=== PATIENT | male | born 1965 | race Caucasian/White ===

== ENCOUNTER 2017-02-12 21:49 | Emergency (ER) | payer BC ==
[~2017-02-12] VITALS: Ht 167.6 cm; Wt 85.4 kg
[2017-02-12 21:54] VITALS: TEMP 98.6; Ht 167.6 cm; Wt 85.4 kg
--- OUTSIDE RECORDS SUMMARY | 2017-02-12 21:54 | XMS REPORT | Referral Summary ---
Author Organization Unknown Address Unknown Phone Unavailable Care Team Providers Care Recovery Unit Operator Name Role Phone Romero Urbano Primary Care Physician [phone] Encounter VC Date(s): 11/24/14 - 11/24/14 [facility] [address] [place] [address] Dr Banks [place]EN[place] [id number] Discharge Diagnosis: Hyperlipidemia Discharge Diagnosis: Hypertension/High BP Discharge Disposition: Home or Self Care Attending Physician: Moshe Urbano MD Admitting Physician: Moshe Urbano MD Vital Signs Most recent to 1 oldest [Reference Range]: Blood Pressure 136/84 mmHg [90-140/60-90 mmHg] (11/24/14 3:57 PM) Problem List Condition Effective Dates Status Health Status Informant Hyperlipidemia(Confi Active rmed) Hypertension/High Active BP(Confirmed) Allergies, Adverse Reactions, Alerts Substance Reaction Severity Status penicillin Active Medications Caduet 5 mg-20 mg oral tablet See Instructions, TAKE ONE TABLET BY MOUTH EVERY DAY, # 90 tabs, 3 Refill(s), Pharmacy: [facility] #[id number] Special Instructions: TAKE ONE TABLET BY MOUTH EVERY DAY Start Date: 11/24/14 Status: Ordered Multiple Vitamins oral tablet tabs, Oral, Daily, 0 Refill(s) Start Date: 11/21/14 Status: Ordered Results Chemistry Most recent to 1 oldest [Reference Range]: Sodium Lvl [135-144 142 mEq/L mEq/L] (11/24/14 4:18 PM) Potassium Lvl 5.0 mEq/L [3.5-5.2 mEq/L] (11/24/14 4:18 PM) Chloride [99-111 105 mEq/L mEq/L] (11/24/14 4:18 PM) CO2 [23-31 mEq/L] 25 mEq/L (11/24/14 4:18 PM) AGAP [3-20] 12 (11/24/14 4:18 PM) BUN [9-21 mg/dL] 16 mg/dL (11/24/14 4:18 PM) Glucose Lvl [70-99 81 mg/dL mg/dL] (11/24/14 4:18 PM) Creatinine Lvl 1.05 mg/dL [0.72-1.25 mg/dL] (11/24/14 4:18 PM) eGFR [>60 mL/min] >60 mL/min 1 (11/24/14 4:18 PM) Calcium Lvl 9.7 mg/dL [8.9-10.5 mg/dL] (11/24/14 4:18 PM) Albumin Lvl [3.5-5.0 4.4 gm/dL gm/dL] (11/24/14 4:18 PM) Total Protein 6.9 gm/dL [6.4-8.3 gm/dL] (11/24/14 4:18 PM) Globulin [1.8-4.0 2.5 gm/dL gm/dL] (11/24/14 4:18 PM) ALT [0-55 unit/L] 31 unit/L (11/24/14 4:18 PM) AST [5-34 unit/L] 34 unit/L (11/24/14 4:18 PM) Alk Phos [40-150 58 unit/L unit/L] (11/24/14 4:18 PM) Bili Total [0.2-1.2 1.1 mg/dL mg/dL] (11/24/14 4:18 PM) 1Result Comment: Multiply eGFR results by 1.21 for race. Immunizations No data available for this section Procedures No data available for this section Social History Social History Type Response Smoking Status Never smoker Assessment and Plan No data available for this section
--- OUTSIDE RECORDS SUMMARY | 2017-02-12 21:54 | XMS REPORT | Continuity of Care Document ---
Author Author [facility] Organization [facility] Address Unknown Phone Unavailable Allergies Active Description Code Type Severity Reaction Onset Reported/Identified Relationship to Patient Clinical Status Yes penicillin NKMA N/A N/A 01/19/2014 Medications Problems Procedures Results Encounters ACCT No. Visit Date/Time Discharge Status Pt. Type Provider Facility Loc./Unit Complaint [id number] 09/25/2016 11:18:00 2016 23:59:00 DIS Outpatient Dami Henry [facility] TCPA COUGH CONGESTION DOC [id number] 11/24/2014 12:37:00 2014 23:59:59 CLS Outpatient Moshe Urbano [facility] Med check
--- OUTSIDE RECORDS SUMMARY | 2017-02-12 21:54 | XMS REPORT | Referral Summary ---
Author Author [facility] Organization [facility] Address Unknown Phone Unavailable Care Team Providers Care [employer] Professor Name Role Phone Romero Urbano Primary Care Physician [phone] Encounter Date(s): 09/25/16 - 09/25/16 [facility] [address] [place] [address] YENY Man[place] [id number] Discharge Diagnosis: Hyperlipidemia Discharge Diagnosis: Acute URI Discharge Diagnosis: Hypertension/High BP Discharge Disposition: 01-Home or Self Care Attending Physician: Dami Henry MD Admitting Physician: Dami Henry MD Vital Signs Most recent to 1 oldest [Reference Range]: Peripheral Pulse 100 bpm Rate [60-100 bpm] (09/25/16 11:29 AM) Blood Pressure 130/90 mmHg [90-140/60-90 mmHg] (09/25/16 11:29 AM) SpO2 98 % (09/25/16 11:29 AM) Problem List Condition Effective Dates Status Health Status Informant Hyperlipidemia(Confi Active rmed) Hypertension/High Active BP(Confirmed) Obesity(Confirmed) Active patient Acute shoulder Active pain(Confirmed) Allergies, Adverse Reactions, Alerts Substance Reaction Severity Status penicillin Active Medications Multiple Vitamins oral tablet tabs, Oral, Daily, 0 Refill(s) Start Date: 11/21/14 Status: Ordered predniSONE 20 mg oral tablet 20 mg 1 tabs, Oral, Daily, X 5 days, # 5 tabs, 0 Refill(s), Pharmacy: [facility] #[id number], 1 tabs Oral Daily,x5 days Start Date: 09/25/16 Stop Date: 09/30/16 Status: Ordered promethazine-codeine 6.25 mg-10 mg/5 mL oral syrup 5 mL, Oral, q4hr, as needed for cough, # 120 mL, 0 Refill(s), called to pharmacy (Rx) Start Date: 09/25/16 Status: Ordered Results No data available for this section Immunizations No data available for this section Procedures No data available for this section Social History Social History Type Response Smoking Status Never smoker Assessment and Plan Extracted from: Title: Ambulatory Patient Education Author: Dami Henry MD Date: 09/25/16 Health and Wellness DASH Eating Plan DASH stands for "Dietary Approaches to Stop Hypertension." The DASH eating plan is a healthy eating plan that has been shown to reduce high blood pressure ( hypertension). Additional health benefits may include reducing the risk of type 2 diabetes mellitus, heart disease, and stroke. The DASH eating plan may also help with weight loss. WHAT DO I NEED TO KNOW ABOUT THE DASH EATING PLAN? For the DASH eating plan, you will follow these general guidelines: Choose foods with a percent daily value for sodium of less than 5% (as listed on the food label). Use salt-free seasonings or herbs instead of table salt or sea salt. Check with your health care provider or pharmacist before using salt substitutes. Eat lower-sodium products, often labeled as "lower sodium" or "no salt added." Eat fresh foods. Eat more vegetables, fruits, and low-fat dairy products. Choose whole grains. Look for the word "whole" as the first word in the ingredient list. Choose fish and skinless chicken or turkey more often than red meat. Limit fish, poultry, and meat to 6 oz (170 g) each day. Limit sweets, desserts, sugars, and sugary drinks. Choose heart-healthy fats. Limit cheese to 1 oz (28 g) per day. Eat more home-cooked food and less restaurant, buffet, and fast food. Limit fried foods. Cook foods using methods other than frying. Limit canned vegetables. If you do use them, rinse them well to decrease the sodium. When eating at a restaurant, ask that your food be prepared with less salt, or no salt if possible. WHAT FOODS CAN I EAT? Seek help from a dietitian for individual calorie needs. Grains Whole grain or whole wheat bread. Brown rice. Whole grain or whole wheat pasta. Quinoa, bulgur, and whole grain cereals. Low-sodium cereals. [place] or whole wheat flour tortillas. Whole grain cornbread. Whole grain crackers. Low-sodium crackers. Vegetables Fresh or frozen vegetables (raw, steamed, roasted, or grilled). Low-sodium or reduced-sodium tomato and vegetable juices. Low-sodium or reduced-sodium tomato sauce and paste. Low-sodium or reduced-sodium canned vegetables. Fruits All fresh, canned (in natural juice), or frozen fruits. Meat and Other Protein Products Ground beef (85% or leaner), grass-fed beef, or beef trimmed of fat. Skinless chicken or turkey. Ground chicken or turkey. Pork trimmed of fat. All fish and seafood. Eggs. Dried beans, peas, or lentils. Unsalted nuts and seeds. Unsalted canned beans. Dairy Low-fat dairy products, such as skim or 1% milk, 2% or reduced-fat cheeses, low- fat ricotta or cottage cheese, or plain low-fat yogurt. Low-sodium or reduced- sodium cheeses. Fats and Oils Tub margarines without trans fats. Light or reduced-fat mayonnaise and salad dressings (reduced sodium). Avocado. Safflower, olive, or canola oils. Natural peanut or almond butter. Other Unsalted popcorn and pretzels. The items listed above may not be a complete list of recommended foods or beverages. Contact your dietitian for more options. WHAT FOODS ARE NOT RECOMMENDED? Grains White bread. White pasta. White rice. Refined cornbread. Bagels and croissants. Crackers that contain trans fat. Vegetables Creamed or fried vegetables. Vegetables in a cheese sauce. Regular canned vegetables. Regular canned tomato sauce and paste. Regular tomato and vegetable juices. Fruits Dried fruits. Canned fruit in light or heavy syrup. Fruit juice. Meat and Other Protein Products Fatty cuts of meat. Ribs, chicken wings, rosales, sausage, bologna, salami, chitterlings, fatback, hot dogs, bratwurst, and packaged luncheon meats. Salted nuts and seeds. Canned beans with salt. Dairy Whole or 2% milk, cream, [id number], and cream cheese. Whole-fat or sweetened yogurt. Full-fat cheeses or blue cheese. Nondairy creamers and whipped toppings. Processed cheese, cheese spreads, or cheese curds. Condiments Onion and garlic salt, seasoned salt, table salt, and sea salt. Canned and packaged gravies. Worcestershire sauce. Tartar sauce. Barbecue sauce. Teriyaki sauce. Soy sauce, including reduced sodium. Steak sauce. Fish sauce. Oyster sauce. Cocktail sauce. Horseradish. Ketchup and mustard. Meat flavorings and tenderizers. Bouillon cubes. Hot sauce. Tabasco sauce. Marinades. Taco seasonings. Relishes. Fats and Oils Butter, stick margarine, lard, shortening, ghee, and rosales fat. Coconut, palm kernel, or palm oils. Regular salad dressings. Other Pickles and olives. Salted popcorn and pretzels. The items listed above may not be a complete list of foods and beverages to avoid. Contact your dietitian for more information. WHERE CAN I FIND MORE INFORMATION? National Heart, Lung, and Blood [place]: www.nhlbi.nih.gov/health/health- topics/topics/dash/ This information is not intended to replace advice given to you by your health care provider. Make sure you discuss any questions you have with your health care provider. Document Released: 08/26/2012 Document Revised: 09/28/2015 Document Reviewed: [employer] Patient Education 2016 [employer] No follow up information was provided. Extracted from: Title: Office Visit Note Author: Dami Henry MD Date: 09/25/16 Assessment/Plan Acute URI Zpack and prednisone 20mg po daily for five days was given. Phen w/cod for cough. May cause sedation. A work/school note was offered and deferred by the patient. Hyperlipidemia Overdue for lab. We discussed several options for treatment for this condition. The patient declined any changes or other treatments at this time. Has appt with Dr. VASQUEZ pending. Hypertension/High BP The patient reports their blood pressure has been stable at home and is not having any significant or related problems. There has been no chest pain, chest pressure, soa/anne. The patient had an elevated blood pressure reading and is to monitor their bp and call with a report if consistently > 140/90.
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
[2017-02-12] MEDS: LIDOCAINE 1% (10mg/ml) 30ml SDV INFIL ONE (22:04)
--- OUTSIDE RECORDS SUMMARY | 2017-02-12 22:04 | XMS REPORT | Continuity of Care Document ---
Author Author [facility] Organization [facility] Address Unknown Phone Unavailable Allergies Active Description Code Type Severity Reaction Onset Reported/Identified Relationship to Patient Clinical Status Yes penicillin NKMA N/A N/A 01/19/2014 Medications Problems Procedures Results Encounters ACCT No. Visit Date/Time Discharge Status Pt. Type Provider Facility Loc./Unit Complaint [id number] 09/25/2016 11:18:00 2016 23:59:00 DIS Outpatient Dami Henry [facility] TCPA COUGH CONGESTION DOC [id number] 11/24/2014 12:37:00 2014 23:59:59 CLS Outpatient Moshe Urbano [facility] Med check
[2017-02-12] MEDS ORDERED: NO CURRENT HOME MEDS (22:14)
[2017-02-12] MEDS: NEOMYCIN/POLYM/BACITR OINT PACKET TOP ONE (22:38)
[2017-02-12] MEDS: TETANUS + DIPHTHERIA (Td)(Adult) 0.5ml SYRINGE IM ONE (22:39)
[2017-02-12 22:51] VITALS: BP 159/89; PULSE 86; RESP 16; O2SAT 96
--- NOTE | 2017-02-12 22:51 | NUR ---
DEPART PT IS DISCHARGED AT THIS TIME, INSTRUCTIONS ARE REVIEWED AND UNDERSTANDING IS VOICED.
== END 2017-02-12 22:51 | disposition home or self-care (01) ==
LOC: ED 21:49
DX: S61.012A Laceration without foreign body of left thumb without damage to nail, initial encounter (principal); W22.8XXA Striking against or struck by other objects, initial encounter; Y93.89 Activity, other specified; Y92.009 Unspecified place in unspecified non-institutional (private) residence as the place of occurrence of the external cause; Y99.8 Other external cause status
CPT/HCPCS: 90714